=== PATIENT | male | born 1980 | race Caucasian/White ===

== ENCOUNTER 2022-07-23 22:58 | Inpatient (IN) | payer OTHER ==
[2022-07-23 23:45] LABS: BASO % 0.5 % (0-2.0); EOS % 1.4 % (0-4.5); HEMATOCRIT 34.9 % (35.4-49); HEMOGLOBIN 11.7 GM/dL (11.7-16.9); LYMPH % 13.6 % (8-40); MCH 31.1 pg (25.7-33.7); MCHC 33.6 g/dl (32.0-35.9); MEAN CELL VOLUME 92.6 fl (80-96); MEAN PLT VOLUME 7.9 fl (7.5-11.1); MONO % 7.9 % (3.8-10.2); NEUT % 76.6 % (42.8-82.8); PLATELET COUNT 251 10^3/uL (134-434); RBC 3.76 M/mm3 (4.00-5.60); RDW 13.4 % (11.9-15.9); WHITE BLOOD COUNT 15.3 K/mm3 (4.0-10.0)
[2022-07-23 23:52] LABS: INR 1.17 (0.83-1.09); PROTHROMBIN TIME (PATIENT) 13.5 SEC (9.7-13.0)
[2022-07-23 23:55] LABS: ACTIVATED PTT 37.5 SECONDS (25.2-36.5)
[2022-07-24 00:14] LABS: ALBUMIN 2.7 g/dl (3.4-5.0); CALCIUM 8.9 mg/dL (8.5-10.1)
[2022-07-24 00:16] LABS: CREATININE 0.8 mg/dL (0.55-1.3)
[2022-07-24 00:19] LABS: BILIRUBIN,TOTAL 0.3 mg/dL (0.2-1)
[2022-07-24 00:21] LABS: N-TERMINAL BNP 43.5 pg/ml (5-125)
[2022-07-24] MEDS ORDERED: VANCOMYCIN 1 GM in D5W (PRE-DOCKED) 1,000 MG/250 ML (RESTRICTED TO ID ONLY IVPB ONE (00:31)
[2022-07-24] MEDS ORDERED: VANCOMYCIN/WATER FOR INJ (PEG) 1,000 MG/200 ML BAG IVPB ONE ×2 (00:56→13:30)
[2022-07-24] MEDS ORDERED: PIPERACILLIN/TAZOB 4.5 GM 4.5 GM in DEXTROSE 5%-WATER 100 ML IVPB ONE (02:04)
[2022-07-24] MEDS ORDERED: PIPERACILLIN/TAZOB 4.5 GM 4.5 GM/100 ML BAG IVPB ONE (02:17)
[2022-07-24] MEDS ORDERED: SENNOSIDES 8.6MG TABLET (FP) PO PRN (02:40)
[2022-07-24] MEDS ORDERED: DOCUSATE SODIUM 100 MG CAPSULE (FP) PO PRN (02:40)
[2022-07-24] MEDS ORDERED: ACETAMINOPHEN 325 MG TABLET (FP) PO PRN (02:40)
[2022-07-24] MEDS ORDERED: KETOROLAC TROMETHAMINE 15 MG/ML VIAL IVPUSH PRN (02:40)
[2022-07-24] MEDS ORDERED: methaDONE HCL 10 MG TABLET PO ONE (06:00)
[2022-07-24] MEDS ORDERED: methaDONE HCL 10 MG TABLET ONE (06:19)
[2022-07-24 06:29] LABS: HEMATOCRIT 33.9 % (35.4-49); HEMOGLOBIN 11.7 GM/dL (11.7-16.9); MCHC 34.5 g/dl (32.0-35.9); MEAN CELL VOLUME 92.6 fl (80-96); MEAN PLT VOLUME 8.4 fl (7.5-11.1); PLATELET COUNT 252 10^3/uL (134-434); RBC 3.66 M/mm3 (4.00-5.60); RDW 13.4 % (11.9-15.9); WHITE BLOOD COUNT 15.2 K/mm3 (4.0-10.0)
[2022-07-24 06:41] LABS: POTASSIUM 4.2 mmol/L (3.5-5.1)
[2022-07-24 06:43] LABS: ALBUMIN 2.6 g/dl (3.4-5.0); CALCIUM 8.8 mg/dL (8.5-10.1)
[2022-07-24 06:44] LABS: BLOOD UREA NITROGEN 11.1 mg/dL (7-18)
[2022-07-24 06:46] LABS: CREATININE 0.7 mg/dL (0.55-1.3)
[2022-07-24 06:48] LABS: BILIRUBIN,TOTAL 0.2 mg/dL (0.2-1); TOT PROT 6.6 g/dl (6.4-8.2)
[2022-07-24 07:40] LABS: HIV INTERPRETATION NEGATIVE (NEGATIVE)
[2022-07-24] MEDS ORDERED: PIPERACILLIN/TAZOB 3.375 GM 3.375 GM in DEXTROSE 5%-WATER - 50 ML IVPB SCH (09:00)
[2022-07-24 09:43] VITALS: RESP 18
[2022-07-24] MEDS ORDERED: ENOXAPARIN NA (PORCINE) 40 MG/0.4 ML DISP.SYRIN SQ SCH ×2 (10:00)
[2022-07-24] MEDS ORDERED: DOXYCYCLINE INJECTION 100 MG in DEXTROSE 5%-WATER 100 ML IVPB SCH (10:00)
[2022-07-24] MEDS ORDERED: VANCOMYCIN 1 GM in D5W (PRE-DOCKED) 1,000 MG/250 ML (RESTRICTED TO ID ONLY IVPB SCH (13:00)
[2022-07-24] MEDS: PIPERACILLIN/TAZOB 3.375 GM 3.375 GM in DEXTROSE 5%-WATER - 50 ML IVPB SCH (17:29)
[2022-07-24 18:56] VITALS: BMI 23.1
[2022-07-25] MEDS: VANCOMYCIN/WATER FOR INJ (PEG) 1,000 MG/200 ML BAG IVPB SCH ×2 (02:32→13:03)
[2022-07-25] MEDS: PIPERACILLIN/TAZOB 3.375 GM 3.375 GM in DEXTROSE 5%-WATER - 50 ML IVPB SCH ×3 (02:33→17:36)
[2022-07-25] MEDS: cloNIDine HCL 0.1 MG TABLET PO PRN (02:40)
[2022-07-25] MEDS ORDERED: ACETAMINOPHEN 1000 MG/100 ML BAG IVPB PRN (08:18)
[2022-07-25 08:21] LABS: HEMATOCRIT 38.1 % (35.4-49); HEMOGLOBIN 13.6 GM/dL (11.7-16.9); MCH 32.7 pg (25.7-33.7); MCHC 35.7 g/dl (32.0-35.9); MEAN CELL VOLUME 91.6 fl (80-96); MEAN PLT VOLUME 8.5 fl (7.5-11.1); PLATELET COUNT 308 10^3/uL (134-434); RBC 4.16 M/mm3 (4.00-5.60); RDW 13.2 % (11.9-15.9); WHITE BLOOD COUNT 11.6 K/mm3 (4.0-10.0)
[2022-07-25 08:23] LABS: CALCIUM 9.5 mg/dL (8.5-10.1); POTASSIUM 4.3 mmol/L (3.5-5.1)
[2022-07-25 08:24] LABS: BLOOD UREA NITROGEN 9.6 mg/dL (7-18)
[2022-07-25 08:27] LABS: CREATININE 0.6 mg/dL (0.55-1.3)
[2022-07-25] MEDS ORDERED: PIPERACILLIN/TAZOBACTAM 3.375 GM VIAL IVPB ONE (16:59)
[2022-07-26] MEDS: VANCOMYCIN/WATER FOR INJ (PEG) 1,000 MG/200 ML BAG IVPB SCH (01:53)
[2022-07-26] MEDS: PIPERACILLIN/TAZOB 3.375 GM 3.375 GM in DEXTROSE 5%-WATER - 50 ML IVPB SCH (01:53)
[2022-07-26 06:25] VITALS: BP 131/66; PULSE 60; TEMP 98.3
[2022-07-26 08:27] LABS: HEMATOCRIT 40.3 % (35.4-49); HEMOGLOBIN 14.2 GM/dL (11.7-16.9); MCH 32.5 pg (25.7-33.7); MCHC 35.3 g/dl (32.0-35.9); MEAN CELL VOLUME 92.2 fl (80-96); MEAN PLT VOLUME 8.8 fl (7.5-11.1); PLATELET COUNT 295 10^3/uL (134-434); RBC 4.38 M/mm3 (4.00-5.60); RDW 13.4 % (11.9-15.9); WHITE BLOOD COUNT 9.3 K/mm3 (4.0-10.0)
[2022-07-26 08:40] LABS: POTASSIUM 4.5 mmol/L (3.5-5.1)
[2022-07-26 08:45] LABS: CALCIUM 9.3 mg/dL (8.5-10.1)
[2022-07-26 08:46] LABS: ALBUMIN 2.9 g/dl (3.4-5.0); BLOOD UREA NITROGEN 13.8 mg/dL (7-18)
[2022-07-26 08:48] LABS: CREATININE 0.6 mg/dL (0.55-1.3)
[2022-07-26 08:49] LABS: BILIRUBIN,TOTAL 0.3 mg/dL (0.2-1)
[2022-07-26 08:50] LABS: TOT PROT 7.8 g/dl (6.4-8.2)
[2022-07-26] MEDS ORDERED: methaDONE HCL 10 MG TABLET PO ONE (10:00)
[2022-07-26] MEDS: cloNIDine HCL 0.1 MG TABLET PO PRN (10:09)
[2022-07-28] MEDS ORDERED: methaDONE HCL 10 MG TABLET PO ONE (10:00)
== END 2022-07-26 11:45 | disposition left against medical advice (07) | DRG 383 ==
LOC: JER 22:58 → JERBED 07-24 02:25 → J6S 07-24 06:51
PROVIDERS: ADMIT Internal Medicine; ATTEND Internal Medicine
DX: L03.114 Cellulitis of left upper limb (principal); F19.10 Other psychoactive substance abuse, uncomplicated; L02.414 Cutaneous abscess of left upper limb; R64 Cachexia; Z68.21 Body mass index [BMI] 21.0-21.9, adult
CPT/HCPCS: 0241U-QW; 36415; 71275-TC; 73090-TC-LT-FY; 73201-TC-RT; 80048; 80053; 83880; 84439; 84443; 84484; 85025; 85027; 85610; 85730; 86140; 87040; 87070; 87186; 87205; 87389; 93005; 93010; 93306-TC; 93971; 99285-25; C1887; Q9967